=== PATIENT | female | born 1970 | race Caucasian/White ===

== ENCOUNTER 2020-06-29 15:38 | Emergency (ER) | payer OTHER, BC, SELFPAY ==
[2020-06-29 15:46] VITALS: BP 138/63; PULSE 80; RESP 14; TEMP 36.7; O2SAT 100; BMI 29.2
--- NOTE | 2020-06-29 15:51 | XR_ITS ---
PROCEDURE: XR HAND RT MIN 3V CLINICAL INDICATION: INJURIED AT WORK COMPARISON: No exams were available for comparison FINDINGS: There is a nondisplaced distal radial fracture at the base of the radial styloid process with extension into the central aspect distal radius at the articular surface. 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 Other findings:None. IMPRESSION: Nondisplaced distal radial fracture Dictated by: Vicente Pastor MD 06/29/2020 16:19 Vicente Pastor MD in [place] 06/29/2020 16:19
--- NOTE | 2020-06-29 15:51 | XR_ITS ---
PROCEDURE: XR WRIST RT MIN 3V CLINICAL INDICATION: INJURED AT WORK Posttraumatic pain COMPARISON: No exams were available for comparison FINDINGS: There is a nondisplaced fracture involving the distal aspect of the radius along its lateral aspect. 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 There is a lucency involving the waist of the navicular which may be related to a groove at this region. Other findings:None. IMPRESSION: Nondisplaced distal radial fracture with intra-articular extension Dictated by: Vicente Pastor MD 06/29/2020 16:18 Vicente Pastor MD in [place] 06/29/2020 16:18
--- NOTE | 2020-06-29 16:46 | HMH.EDUTC ---
[facility] [place] Disposition Clinical Impression: Right wrist pain, Right hand pain Fracture of right distal radius Qualifiers: Encounter type: initial encounter Fracture type: closed Fracture morphology: unspecified fracture morphology Qualified Code(s): S52.501A - Unspecified fracture of the lower end of right radius, initial encounter for closed fracture Disposition: Home, Self-Care Condition on Discharge: Good Instructions: Wrist Fracture, DI for Wrist Fracture Additional Instructions: Rest the extremity, apply ice for 15 minutes as tolerated three or four times per day, Elevate the extremity as tolerated while you are resting. Watch your fingers and make sure they stay warm and pink. If your wrist swells significantly it could make the splint become too tight and interfere with blood flow. If the splint does become too tight, you could unwrap the tra wrap only and wrap it back looser. But usually if you appy ice regularly and elevate the extremity swelling will not cause the splint to become too tight. Take ibuprofen for pain. I sent in a prescription to your pharmacy. Follow up with Dr. Guzman (orthopedics). You have an appointment at his office for 07/07/2020 (Next Sunday) at 3:00 pm. His office number is [phone]. Follow up with your regular doctor. GO TO THE ER FOR ANY WORSENING SYMPTOMS Prescriptions: Ibuprofen [Ibuprofen 800mg Tablet] 800 mg PO Q8HP PRN #30 tab PRN Reason: Moderate Pain Transmission Status: Received by [facility] Referrals: Brian Hitchcock MD [Primary Care Provider] - Win Guzman MD [Staff Physician] - Forms: Work/School Release Time of Disposition: 16:59 Medical Decision Making - Medical Records Medical records reviewed: No: I reviewed the patient's medical records. - Jonathan Inquiry Pt receiving controlled substance: No Vital Signs: 06/29/20 15:46 06/29/20 17:13 Temperature 98.1 F 98.1 F Temperature Source Oral Oral Pulse Rate 80 Pulse Rate [Right] 80 Respiratory Rate 14 14 Blood Pressure 138/63 Blood Pressure [Right Arm] 138/63 Blood Pressure Mean [Right Arm] 88 02 Sat by Pulse Oximetry 100 - Radiology Data #1 Image(s): Wrist Image Reviewed: Yes I reviewed the patient's radiology image, Yes I have reviewed radiologist's interpretation Preliminary Findings: Abnormal PROCEDURE: XR WRIST RT MIN 3V CLINICAL INDICATION: INJURED AT WORK Posttraumatic pain COMPARISON: No exams were available for comparison FINDINGS: There is a nondisplaced fracture involving the distal aspect of the radius along its lateral aspect. 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 There is a lucency involving the waist of the navicular which may be related to a groove at this region. Other findings:None. IMPRESSION: Nondisplaced distal radial fracture with intra-articular extension Dictated by: Vicente Pastor MD 06/29/2020 16:18 Vicente Pastor MD in [place] 06/29/2020 16:18 #2 Image(s): Hand Image Reviewed: Yes I reviewed the patient's radiology image, Yes I have reviewed radiologist's interpretation Preliminary Findings: Abnormal PROCEDURE: XR HAND RT MIN 3V CLINICAL INDICATION: INJURIED AT WORK COMPARISON: No exams were available for comparison FINDINGS: There is a nondisplaced distal radial fracture at the base of the radial styloid process with extension into the central aspect distal radius at the articular surface. 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 Other findings:None. IMPRESSION: Nondisplaced distal radial fracture Dictated by: Vicente Pastor MD 06/29/2020 16:19 Vicente Pastor MD in [place] 06/29/2020 16:19 Medical Decision Narrative: I called and discussed this case with ortho office personnel (Lanette). She relayed the case to Dr. Guzman and f/u appt and instructions were received.
[2020-06-29 17:13] VITALS: BP 138/63; PULSE 80; RESP 14; TEMP 36.7
== END 2020-06-29 17:16 | disposition home or self-care (01) ==
PROVIDERS: Emergency Provider Nurse Practitioner Family; PCP Internal Medicine Adolescent Medicine
DX: S52.501A Unspecified fracture of the lower end of right radius, initial encounter for closed fracture (principal); W23.0XXA Caught, crushed, jammed, or pinched between moving objects, initial encounter; Y92.69 Other specified industrial and construction area as the place of occurrence of the external cause; Y99.0 Civilian activity done for income or pay
CPT/HCPCS: 29125; 73110; 73130; 99203; G0463

== ENCOUNTER → 2020-07-07 15:24 | Outpatient (CLI) | payer OTHER, SELFPAY ==
--- NOTE | 2020-07-07 15:28 | XR_ITS ---
PROCEDURE: XR WRIST RT MIN 3V CLINICAL INDICATION: right wrist fracture/ cast applied COMPARISON: CR XR WRIST RT MIN 3V from 06/29/2020 FINDINGS: Cast has been applied. There is good alignment of the distal radial fracture. 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 IMPRESSION: Good alignment status post cast placement distal radial fracture Dictated by: Vicente Pastor MD 07/07/2020 15:55 Vicente Pastor MD in [place] 07/07/2020 15:55
== END ==
PROVIDERS: PCP Internal Medicine Adolescent Medicine; Visit Provider Orthopaedic Surgery
DX: S52.501A Unspecified fracture of the lower end of right radius, initial encounter for closed fracture (principal)
CPT/HCPCS: 73110

== ENCOUNTER → 2020-07-14 14:52 | Outpatient (CLI) | payer OTHER, SELFPAY ==
--- NOTE | 2020-07-14 14:55 | XR_ITS ---
PROCEDURE: XR WRIST RT MIN 3V CLINICAL INDICATION: right wrist fracture, xrays in cast COMPARISON: CR XR WRIST RT MIN 3V from 06/29/2020 CR XR WRIST RT MIN 3V from 07/07/2020 FINDINGS: The overlying cast obscures the distal radial fracture. There is good alignment. There are mild osteoarthritic changes of the 1st metacarpal-carpal joint. IMPRESSION: Good alignment status post cast placement of distal radial fracture Dictated by: Vicente Pastor MD 07/14/2020 16:30 Vicente Pastor MD in [place] 07/14/2020 16:30
== END ==
PROVIDERS: PCP Internal Medicine Adolescent Medicine; Visit Provider Orthopaedic Surgery
DX: S52.501A Unspecified fracture of the lower end of right radius, initial encounter for closed fracture (principal)
CPT/HCPCS: 73110

== ENCOUNTER → 2020-08-11 15:10 | Outpatient (CLI) | payer OTHER, SELFPAY ==
--- NOTE | 2020-08-11 15:18 | XR_ITS ---
PROCEDURE: XR WRIST RT MIN 3V CLINICAL INDICATION: right wrist fx/ OUT OF CAST Follow-up fracture COMPARISON: CR XR WRIST RT MIN 3V from 06/29/2020 CR XR WRIST RT MIN 3V from 07/07/2020 DX XR WRIST RT MIN 3V from 07/14/2020 FINDINGS: Cast has been removed. Nondisplaced distal radial fracture line is barely visible. Osteoarthritic changes are present at the 1st metacarpal-carpal junction. There is mild diffuse osteopenia. IMPRESSION: Good alignment healing distal radial fracture. Dictated by: Vicente Pastor MD 08/11/2020 16:25 Vicente Pastor MD in [place] 08/11/2020 16:25
== END ==
PROVIDERS: PCP Internal Medicine Adolescent Medicine; Visit Provider Orthopaedic Surgery
DX: S52.501A Unspecified fracture of the lower end of right radius, initial encounter for closed fracture (principal)
CPT/HCPCS: 73110

== ENCOUNTER 2020-08-11 15:47 | Outpatient (RCR) | payer OTHER, SELFPAY | END 2020-08-11 16:30 | disposition home or self-care (01) | LOC: OT 15:47 | PROVIDERS: Visit Provider Orthopaedic Surgery | DX: S52.501A Unspecified fracture of the lower end of right radius, initial encounter for closed fracture (principal) ==

== ENCOUNTER 2020-08-20 15:00 | Outpatient (RCR) | payer OTHER, SELFPAY | END 2020-08-20 15:05 | disposition home or self-care (01) | LOC: OT 15:00 | PROVIDERS: Visit Provider Orthopaedic Surgery | DX: S52.514D Nondisplaced fracture of right radial styloid process, subsequent encounter for closed fracture with routine healing (principal) | CPT/HCPCS: 97014; 97035; 97110; 97140; 97165; G0283 ==

== ENCOUNTER → 2020-10-27 14:01 | Outpatient (CLI) | payer OTHER, SELFPAY ==
--- NOTE | 2020-10-27 14:05 | XR_ITS ---
PROCEDURE: XR WRIST RT MIN 3V CLINICAL INDICATION: RT wrist fracture COMPARISON: CR XR WRIST RT MIN 3V from 06/29/2020 CR XR WRIST RT MIN 3V from 07/07/2020 DX XR WRIST RT MIN 3V from 07/14/2020 CR XR WRIST RT MIN 3V from 08/11/2020 FINDINGS: Healed fracture of the distal radius is noted. No evidence of displacement. Moderate to severe degenerative changes of the 1st CMC joint with the mild subluxation. The rest of the carpometacarpal joints are within normal limits. Mild generalized osteopenia. No significant soft tissue abnormality is noted. IMPRESSION: Healed fracture of the distal radius. 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 Dictated by: Florecita Guzman 10/28/2020 08:53 Florecita Guzman in [place] 10/28/2020 08:53
== END ==
PROVIDERS: PCP Internal Medicine Adolescent Medicine; Visit Provider Orthopaedic Surgery
DX: S52.501A Unspecified fracture of the lower end of right radius, initial encounter for closed fracture (principal)
CPT/HCPCS: 73110

== ENCOUNTER → 2021-08-03 09:42 | Outpatient (CLI) | payer BC, SELFPAY ==
--- NOTE | 2021-08-03 09:46 | MM_ITS ---
PROCEDURE INFORMATION: Exam: MG Bilateral Screening 3D Mammography Exam date and time: 08/03/2021 9:46 AM Age: 51 years old Clinical indication: Screening mammogram TECHNIQUE: Imaging protocol: Bilateral Screening tomosynthesis and 2D mammography including computer-aided detection (CAD) when performed. COMPARISON: No relevant prior studies available. FINDINGS: MAMMOGRAPHY: Breast composition: The breast tissue is heterogeneously dense, which may obscure small masses. Mass: None. Architectural distortion: No new or suspicious architectural distortion. Calcifications: benign-appearing calcifications are present. No new or suspicious cluster of microcalcifications have developed. Asymmetric density: No new or suspicious asymmetric density is present Skin thickening: None. Axillary adenopathy: None. IMPRESSION: No mammographic evidence of malignancy. Recommend annual screening mammography unless otherwise clinically indicated. ASSESSMENT: BI-RADS category 2: Benign
== END ==
PROVIDERS: PCP Internal Medicine Adolescent Medicine; Visit Provider Internal Medicine Adolescent Medicine
DX: Z12.31 Encounter for screening mammogram for malignant neoplasm of breast (principal)
CPT/HCPCS: 77063; 77067

== ENCOUNTER 2023-09-24 10:13 | Outpatient (CLI) | payer BC, SELFPAY ==
--- NOTE | 2023-09-24 10:19 | MM_ITS ---
PROCEDURE INFORMATION: Exam: MG Bilateral Screening 3D Mammography Exam date and time: 09/24/2023 10:12 AM Age: 53 years old Clinical indication: Screening. No family history of breast cancer. TECHNIQUE: Imaging protocol: Bilateral Screening tomosynthesis and 2D mammography including computer-aided detection (CAD) when performed. COMPARISON: MG MM DIG SCREENING MAMM BI W/CAD 08/03/2021 9:53 AM FINDINGS: MAMMOGRAPHY: Breast composition: The breasts are heterogeneously dense, which may obscure small masses. Mass: Questionable 0.5 cm mass in the right upper outer quadrant, middle 3rd, 5-6 cm from the nipple. Architectural distortion: None. Calcifications: No suspicious calcifications. Asymmetric density: None. Skin thickening: None. Axillary adenopathy: None. IMPRESSION: Patient will be recalled for right diagnostic mammography with spot compression in CC and MLO and right sonography for further evaluation of questionable right breast mass. ASSESSMENT: BI-RADS Category 0: Incomplete: Need Additional Imaging Evaluation and/or Prior Mammograms for Comparison
--- NOTE | 2023-09-24 10:20 | CT_ITS ---
FINAL REPORT TECHNIQUE: Thin section axial images were obtained from the lung apices to the upper abdomen by computed tomography. Reformatted images were obtained and reviewed. This study was performed with techniques to keep radiation doses al low as reasonably achievable (ALARA). Individualized dose reduction techniques using automated exposure control or adjustment of mA and/or kV according to the patient's size were employed. CLINICAL HISTORY: H/O TOBACCO USE smoker 1 pack per day x 25 yrs COMPARISON: None FINDINGS: CHEST CT LOW DOSE 54-year-old female, current smoker, [id number] history CTDI vol (mGy): 2.9 DLP (mGy-cm): 90.38 There is no axillary adenopathy. There is no mediastinal or hilar mass or adenopathy. The heart is normal in size. There is no pericardial or pleural effusion. Lung window images demonstrate a 4 mm right upper lobe nodule best seen in image #26. There is a calcified granuloma present in the right lung base. Limited images of the upper abdomen reveal mild bilateral adrenal enlargement, favor adenomas. IMPRESSION: Lung-RADS category 2. Recommend 12 month follow up low dose chest CT. Reviewed, Interpreted and Dictated by Augustus Anderson III, MD Transcribed by Dionna Graham Authenticated and [facility]
== END 2023-09-24 23:59 ==
LOC: RAD 10:14
PROVIDERS: PCP Nurse Practitioner Family; Visit Provider Nurse Practitioner Family
DX: Z12.31 Encounter for screening mammogram for malignant neoplasm of breast (principal); Z87.891 Personal history of nicotine dependence
CPT/HCPCS: 71271; 77063; 77067

== ENCOUNTER 2023-10-08 14:20 | Outpatient (CLI) | payer BC, SELFPAY ==
--- NOTE | 2023-10-08 14:24 | MM_ITS ---
PROCEDURE INFORMATION: Exam: US Right Breast, Complete MG Right Diagnostic Breast Tomosynthesis Exam date and time: 10/08/2023 2:15 PM Age: 53 years old Clinical indication: Patient recalled on the basis of a screening mammogram for further evaluation; Right breast; mass TECHNIQUE: Imaging protocol: Complete ultrasound of all four quadrants of the right breast and the retroareolar regions, including ultrasound of the axilla when performed. Right Diagnostic tomosynthesis and 2D mammography including computer-aided detection (CAD) when performed. Unilateral or bilateral exam. COMPARISON: 1. MG MM DIG SCREENING MAMM BI W/CAD 09/24/2023 10:12 AM 2. MG MM DIG SCREENING MAMM BI W/CAD 08/03/2021 9:53 AM FINDINGS: MAMMOGRAPHY: Breast composition: The breast is heterogeneouly dense, which may obscure small masses (based on the most recent screening mammogram report). Breast mammogram findings: Digital diagnostic spot compression views of the right breast and 90 degree lateral view of the right breast demonstrate normal overlapping fibroglandular structures without persistent mass or asymmetry identified. ULTRASOUND: Breast ultrasound findings: Sonographic images of the right breast including the retroareolar region, all 4 quadrants and the axilla do not demonstrate any solid or cystic masses. No architectural distortion or acoustical shadowing. No skin thickening or axillary adenopathy. IMPRESSION: No mammographic or sonographic evidence of malignancy. Annual bilateral mammographic screening is recommended unless otherwise clinically indicated. ASSESSMENT: BI-RADS Category 1: Negative.
== END 2023-10-08 23:59 | disposition home or self-care (01) ==
LOC: RAD 14:20
PROVIDERS: PCP Nurse Practitioner Family; Visit Provider Nurse Practitioner Family
DX: R92.8 Other abnormal and inconclusive findings on diagnostic imaging of breast (principal)
CPT/HCPCS: 76641; 77061; 77065; G0279

== ENCOUNTER 2025-05-25 14:23 | Outpatient (CLI) | payer BC, SELFPAY ==
--- NOTE | 2025-05-25 14:27 | MR_ITS ---
PROCEDURE INFORMATION: Exam: MR Right Lower Extremity Joint Without Contrast, Knee Exam date and time: 05/25/2025 3:01 PM Age: 55 years old Clinical indication: Pain; Knee; Right; Additional info: Pain in RT knee, fall Sunday, lateral sided pain, knee has been giving out TECHNIQUE: Imaging protocol: Magnetic resonance imaging of the right lower extremity joint without contrast. Exam focused on the knee. COMPARISON: No relevant prior studies available. FINDINGS: Bones/joints: The fat pads of the knee are unremarkable. There is a small subcortical fracture of the lateral tibial plateau, series 10, image 15 with surrounding bone marrow edema. Remaining bone marrow is within normal limits. There is a small joint effusion. 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 Medial meniscus: The medial meniscus is unremarkable. No tear. Lateral meniscus: The lateral meniscus is unremarkable. No tear. Anterior cruciate ligament: The anterior cruciate ligament is intact and unremarkable. Posterior cruciate ligament: Posterior cruciate ligament is intact and unremarkable. Medial capsule and supporting structures: The medial collateral ligament is normal. Lateral capsule and supporting structures: The iliotibial band is normal. The fibular collateral ligament is normal. Biceps femoris tendon is normal. Extensor mechanism of knee: The quadriceps tendon appears normal. Patellar tendon appears normal. Soft tissues: Soft tissue edema adjacent to the subcortical fracture of the lateral tibial plateau and in the superficial soft tissue anterior to the patellar tendon and lateral retinaculum. IMPRESSION: 1. There is a small subcortical fracture of the lateral tibial plateau, series 10, image 15 with surrounding bone marrow edema. Subcortical fracture, lateral tibial plateau. 2. Soft tissue edema as described may represent soft tissue contusion.
== END 2025-05-25 23:59 | disposition home or self-care (01) ==
PROVIDERS: PCP Nurse Practitioner Family; Visit Provider Nurse Practitioner Family
DX: S82.141A Displaced bicondylar fracture of right tibia, initial encounter for closed fracture (principal); R60.0 Localized edema
CPT/HCPCS: 73721